=== PATIENT | female | born 1955 | race Caucasian/White ===

== ENCOUNTER → 2016-07-21 | Outpatient (CLI) | payer MEDICARE | END | disposition home or self-care (01) | LOC: PCVCCLINIC 10:49 | PROVIDERS: ATTEND Internal Medicine Cardiovascular Disease | DX: I10 Essential (primary) hypertension (principal); E78.5 Hyperlipidemia, unspecified; R00.0 Tachycardia, unspecified; R09.89 Other specified symptoms and signs involving the circulatory and respiratory systems; Z82.49 Family history of ischemic heart disease and other diseases of the circulatory system; Z72.0 Tobacco use | CPT/HCPCS: 80061; 93005; G0463 ==

== ENCOUNTER → 2016-09-21 | Outpatient (CLI) | payer MEDICARE ==
[~2016-09-21] MED LIST: REGADENOSON 0.4 MG/5 ML DISP.SYRIN. IV ONE
--- NOTE | 2016-09-21 19:12 | PCVCIMAG ---
APPROVED REPORT Exam: Nuclear Stress Test Patient Location: OUT PATIENT Stress Nurse: MAGGIE TAYLOR [place] Tech:MAIRA SHANKS Ht: 5 ft 7 in Wt: 150 lbs BSA: 1.79 m2 HR: 103 bpm BP: 155/75 mmHg Medical History Medications: OLMESARTAN, PRAVASTATIN, BYSTOLIC (HOLD) Cardiac Risk Factors: AGE, FAMILY HX OF CAD, HTN, HYPERCHOLESTEROLEMIA, Study Quality Study: Good Study Data Post stress, the left ventricular ejection was 75%.. SSS: 1 SRS: 1 SDS: 1 TID = 1.15. Perfusion Normal perfusion on both the stress and rest images. Wall Motion Normal left ventricular wall motion. Conclusion No evidence of reversible ischemia or prior infarct. Normal left ventricular size and function with no regional wall motion abnormalities. No prior study available for comparison. Interpreted by: Tom Grover MD Electronically Approved: 09/21/2016 14:30:23 Testing Details Test: Pharmacologic stress testing performed using 0.4 mg of regadenoson per 5 mL given IV over 10 seconds. HR Resting HR: 103 bpmMax Heart Rate (APMHR): 160 bpm Max HR Achieved: 121 bpmTarget HR (85% APMHR): 136 bpm % of APMHR: 75 Recovery HR: 113 bpm BP Resting BP: 155/75 mmHg Max BP: 175/89 mmHg Recovery BP: 145/72 mmHg ECG Resting ECG: Sinus Rhythm Stress ECG: Sinus Rhythm ST Change: None Clinical Reason for Termination: Completed protocol Stress Symptoms: soa, lightheaded Stress ECG Conclusion ECG: Non-ischemic [place] EXAM: Myocardial Perfusion REST/STRESS Imaging Protocol: Rest Tc-99m/Stress Tc-99m 1 day Resting Data Rest SPECT myocardial perfusion imaging was performed in supine position 45 minutes following the intravenous injection of 9.3 mCi of Tc-99m Sestamibi. Time of rest injection: 0840 Date: 09/21/2016 Pharmacologic Stress Pharmacologic stress test was performed by injecting Regadenoson 0.4 mg IV push followed by the intravenous injection of 25.9 mCi of Tc-99m Sestamibi. Time of stress injection: 1010 Date: 09/21/2016 The images were gated to evaluate regional wall motion and calculate left ventricular ejection fraction. <Conclusion> ECG: Non-ischemic
--- NOTE | 2016-09-22 17:31 | PCVCIMAG ---
EXAM: BILATERAL CAROTID DUPLEX INDICATION: Carotid Occlusive Disease. FINDINGS: Doppler Measurements (centimeters per second): RIGHT: Peak CCA-94, Peak ECA-85, Diastolic ICA-25, Peak ICA-67, ICA/CCA Ratio-0.7. LEFT: Peak CCA-110, Peak ECA-95, Diastolic ICA-35, Peak ICA-87, ICA/CCA Ratio-0.8. RIGHT CAROTID: The carotid bulb has minimal plaque. The proximal internal carotid artery shows no significant stenosis. The common carotid artery shows no significant stenosis. The external carotid artery shows no significant stenosis. LEFT CAROTID: The carotid bulb has minimal plaque. The proximal internal carotid artery shows no significant stenosis. The common carotid artery shows no significant stenosis. The external carotid artery shows no significant stenosis. Antegrade flow in both vertebral arteries. IMPRESSION: No significant stenosis of the right internal carotid artery with minimal plaque. No significant stenosis of the left internal carotid artery with minimal plaque. LOC:[id number]
== END | disposition home or self-care (01) ==
LOC: PCVCIMAG 08:06
PROVIDERS: ATTEND Internal Medicine Cardiovascular Disease
DX: R09.89 Other specified symptoms and signs involving the circulatory and respiratory systems (principal); I10 Essential (primary) hypertension; E78.00 Pure hypercholesterolemia, unspecified; F17.200 Nicotine dependence, unspecified, uncomplicated
CPT/HCPCS: 78452; 93017; 93880; A9500; J2785

== ENCOUNTER → 2017-11-02 | Outpatient (CLI) | payer MEDICARE | END | disposition home or self-care (01) | LOC: PCVCCLINIC 14:22 | DX: I10 Essential (primary) hypertension (principal); E78.00 Pure hypercholesterolemia, unspecified; G61.0 Guillain-Barre syndrome; Z72.0 Tobacco use; Z79.899 Other long term (current) drug therapy | CPT/HCPCS: 80061; 93005; G0463 ==

== ENCOUNTER → 2019-03-02 | Outpatient (CLI) | payer MEDICARE | END | disposition home or self-care (01) | LOC: PCVCCLINIC 14:26 | PROVIDERS: ATTEND Internal Medicine Cardiovascular Disease | DX: E78.00 Pure hypercholesterolemia, unspecified (principal); I10 Essential (primary) hypertension; G61.0 Guillain-Barre syndrome; F17.210 Nicotine dependence, cigarettes, uncomplicated; Z79.899 Other long term (current) drug therapy | CPT/HCPCS: 36415; 80061; 93005; G0463 ==